=== PATIENT | female | born 1970 | race American Indian/Alaskan Native ===

== ENCOUNTER 2018-03-16 16:39 | Emergency (ER) | payer BC ==
[2018-03-16] MEDS ORDERED: CATAPRES PO ONE (17:39)
[2018-03-16 18:18] LABS: Basophils # (Auto) 0.1 K/mm3 (0.0-0.1); Basophils % (Auto) 1.2 % (0.0-1.8); Eosinophils # (Auto) 0.2 K/mm3 (0.0-0.4); Eosinophils % (Auto) 2.8 % (0.0-4.3); Hemoglobin 7.4 gm/dl (10.1-14.3); Lymphocytes # (Auto) 1.9 K/mm3 (1.2-5.4); Lymphocytes % (Auto) 23.1 % (13.4-35.0); Mean Corpuscular HGB Conc 30 % (30-34); Monocytes # (Auto) 0.5 K/mm3 (0.0-0.8); Monocytes % (Auto) 5.4 % (0.0-7.3); Platelet Count 419 K/mm3 (140-440); Red Blood Count 4.33 M/mm3 (3.65-5.03)
[2018-03-16 18:19] LABS: Mean Corpuscular Hemoglobin 17 pg (28-32); Mean Corpuscular Volume 58 fl (79-97)
[2018-03-16 18:20] LABS: Red Cell Distribution Width 20.1 % (13.2-15.2)
[2018-03-16 18:30] LABS: INR 0.85 (0.87-1.13)
[2018-03-16 18:32] LABS: Creatine Kinase MB 2.1 ng/mL (0.0-4.0)
[2018-03-16 18:33] LABS: BUN/Creatinine Ratio 9; Blood Urea Nitrogen 9 mg/dL (7-17); Calcium 9.2 mg/dL (8.4-10.2); Hemolysis Index 0
--- NOTE | 2018-03-16 19:03 | XRay Report ---
FINAL REPORT PROCEDURE: Chest. TECHNIQUE: PA and lateral views. HISTORY: Chest Pain . COMPARISON: No prior studies are available for comparison. FINDINGS: The heart size is mildly enlarged. The lungs are clear and well expanded. There are no pleural effusions. The soft tissues and regional skeleton are unremarkable. IMPRESSION: Mild cardiomegaly.
--- NOTE | 2018-03-16 19:15 | Emergency Department Report ---
ED Syncope HPI - General Chief Complaint: High BP Stated Complaint: PANIC ATTACK Time Seen by Provider: 03/16/18 18:48 Source: patient Exam Limitations: no limitations - History of Present Illness Initial Comments: 47 year old female with a past medical history ger-[id number] diabetes and hypertension complains of near syncopal episode during grief reaction in response to her brother's . Her younger brother presented earlier to the ER here and status post cardiac arrest. The hearing this news patient began crying, got really dizzy, went outside for air and then collapsed to the ground. Family member at the bedside states the patient did pass out completely but patient denies this. She did go down to the ground, did not strike her head since she was caught by a family member, but states she was alert during the whole process. She denies any preceding headache chest pain, shortness of breath, abdominal pain, nausea or diarrhea. She is presents with elevated blood pressure and has been noncompliant with her blood pressure medication 1 month. She has been compliant with her diabetes medication. She is admitted to [facility] 4 months ago for hypertension and medication compliance and states she had a negative stress test at that time. Her current medications are supposed to be lisinopril/hydrochlorothiazide 20/ 12.5 mg QD and metformin 500 mg twice a day - Related Data Allergies/Adverse Reactions: Allergies No Known Allergies Allergy (Unverified 03/16/18 17:31) Home Medications: Ambulatory Orders Docusate Sodium [Colace] 100 mg PO BID PRN #30 capsule 03/16/18 Ferrous Sulfate [Iron] 325 mg PO DAILY #30 tablet 03/16/18 Lisinopril/Hydrochlorothiazide [Zestoretic 20-12.5 mg] 1 tab PO QDAY #30 tablet 03/16/18 metFORMIN [Glucophage] 500 mg PO BID 03/16/18 ED Review of Systems ROS: Stated complaint: PANIC ATTACK Other details as noted in HPI Comment: All other systems reviewed and negative ED Past Medical Hx - Past Medical History Hx Diabetes: Yes Additional medical history: iron deficiency anemia - Social History Smoking Status: Never Smoker Substance Use Type: None - Medications Home Medications: Home Medications Medication Instructions Recorded Confirmed Last Taken Type Docusate Sodium [Colace] 100 mg PO BID PRN #30 capsule 03/16/18 Unknown Rx Ferrous Sulfate [Iron] 325 mg PO DAILY #30 tablet 03/16/18 Unknown Rx Lisinopril/Hydrochlorothiazide 1 tab PO QDAY #30 tablet 03/16/18 Unknown Rx [Zestoretic 20-12.5 mg] metFORMIN [Glucophage] 500 mg PO BID 03/16/18 03/16/18 Unknown History ED Physical Exam - General Limitations: No Limitations - Other Other exam information: General: No limitations, patient is alert in no acute distress Head exam: Atraumatic, normocephalic Eyes exam: Normal appearance, pupils equal reactive to light, extraocular movements intact ENT: Moist mucous membrane Neck exam: Normal inspection, full range of motion, no meningismus nontender Respiratory exam: Clear to auscultation bilateral, no wheezes, rales, crackles Cardiovascular: Normal rate and rhythm, normal heart sounds Abdomen: Soft, nondistended, and nontender, with normal bowel sounds, no rebound, or guarding Extremity: Full range of motion normal inspection no deformity Back: Normal Inspection, full range of motion, no tenderness Neurologic: Alert, oriented x3, cranial nerves intact, no motor or sensory deficit Psychiatric: normal affect, normal mood Skin: Warm, dry, intact ED Course Vital Signs 03/16/18 03/16/18 03/16/18 17:16 18:09 18:47 Temperature 98 F Pulse Rate 115 H 110 H Respiratory 16 Rate Blood Pressure 215/103 231/128 Blood Pressure 206/103 [Left] O2 Sat by Pulse 100 Oximetry 03/16/18 03/16/18 19:26 20:38 Temperature Pulse Rate 98 H 75 Respiratory 16 16 Rate Blood Pressure Blood Pressure 172/94 163/95 [Left] O2 Sat by Pulse Oximetry ED Medical Decision Making - Lab Data Result diagrams: 03/16/18 17:57 03/16/18 17:57 Lab Results 03/16/18 03/16/18 03/16/18 Range/Units 17:35 17:57 17:57 WBC 8.4 (4.5-11.0) K/mm3 RBC 4.33 (3.65-5.03) M/mm3 Hgb 7.4 L (10.1-14.3) gm/dl Hct 25.0 L (30.3-42.9) % MCV 58 L (79-97) fl MCH 17 L (28-32) pg MCHC 30 (30-34) % RDW 20.1 H (13.2-15.2) % Plt Count 419 (140-440) K/mm3 Lymph % (Auto) 23.1 (13.4-35.0) % [place] % (Auto) 5.4 (0.0-7.3) % Eos % (Auto) 2.8 (0.0-4.3) % Baso % (Auto) 1.2 (0.0-1.8) % Lymph # 1.9 (1.2-5.4) K/mm3 [place] # 0.5 (0.0-0.8) K/mm3 Eos # 0.2 (0.0-0.4) K/mm3 Baso # 0.1 (0.0-0.1) K/mm3 Seg Neutrophils % 67.5 (40.0-70.0) % Seg Neutrophils # 5.6 (1.8-7.7) K/mm3 PT (12.2-14.9) Sec. INR (0.87-1.13) Sodium 143 (137-145) mmol/L Potassium 3.5 L (3.6-5.0) mmol/L Chloride 104.2 (98-107) mmol/L Carbon Dioxide 24 (22-30) mmol/L Anion Gap 18 mmol/L BUN 9 (7-17) mg/dL Creatinine 1.0 (0.7-1.2) mg/dL Estimated GFR > 60 ml/min BUN/Creatinine Ratio 9 % Glucose 131 H (65-100) mg/dL POC Glucose 164 H (70-105) Calcium 9.2 (8.4-10.2) mg/dL Iron (37-170) ug/dL TIBC (250-450) mcg/dL % Saturation % Transferrin (192-382) mg/dl Total Creatine Kinase 184 H (30-135) units/L CK-MB (CK-2) 2.1 (0.0-4.0) ng/mL CK-MB (CK-2) Rel Index 1.1 (0-4) Troponin T < 0.010 (0.00-0.029) ng/mL HCG, Qual (Negative) 03/16/18 03/16/18 03/16/18 Range/Units 17:57 17:57 19:02 WBC (4.5-11.0) K/mm3 RBC (3.65-5.03) M/mm3 Hgb (10.1-14.3) gm/dl Hct (30.3-42.9) % MCV (79-97) fl MCH (28-32) pg MCHC (30-34) % RDW (13.2-15.2) % Plt Count (140-440) K/mm3 Lymph % (Auto) (13.4-35.0) % [place] % (Auto) (0.0-7.3) % Eos % (Auto) (0.0-4.3) % Baso % (Auto) (0.0-1.8) % Lymph # (1.2-5.4) K/mm3 [place] # (0.0-0.8) K/mm3 Eos # (0.0-0.4) K/mm3 Baso # (0.0-0.1) K/mm3 Seg Neutrophils % (40.0-70.0) % Seg Neutrophils # (1.8-7.7) K/mm3 PT 12.1 L (12.2-14.9) Sec. INR 0.85 L (0.87-1.13) Sodium (137-145) mmol/L Potassium (3.6-5.0) mmol/L Chloride (98-107) mmol/L Carbon Dioxide (22-30) mmol/L Anion Gap mmol/L BUN (7-17) mg/dL Creatinine (0.7-1.2) mg/dL Estimated GFR ml/min BUN/Creatinine Ratio % Glucose (65-100) mg/dL POC Glucose (70-105) Calcium (8.4-10.2) mg/dL Iron 16 L (37-170) ug/dL TIBC 481 H (250-450) mcg/dL % Saturation 3.33 % Transferrin 399 H (192-382) mg/dl Total Creatine Kinase (30-135) units/L CK-MB (CK-2) (0.0-4.0) ng/mL CK-MB (CK-2) Rel Index (0-4) Troponin T (0.00-0.029) ng/mL HCG, Qual Negative (Negative) - EKG Data -: EKG Interpreted by Nd EKG shows normal: sinus rhythm, axis (qrs 30), QRS complexes (qrsd 85), ST-T waves (no stemi/t inv) Rate: tachycardia (109) - Radiology Data Radiology results: report reviewed FINAL REPORT PROCEDURE: Chest. TECHNIQUE: PA and lateral views. HISTORY: Chest Pain . COMPARISON: No prior studies are available for comparison. FINDINGS: The heart size is mildly enlarged. The lungs are clear and well expanded. There are no pleural effusions. The soft tissues and regional skeleton are unremarkable. IMPRESSION: Mild cardiomegaly. - Medical Decision Making near syncope likely due to grief reaction no pain or other sx associated with episode htn noncompliance no signs of htn emergency improved after clonidine pt has 2 neg cardiac enzymes and reports a neg stress test this year med refill will be provided f/u encouraged anemia iron deficiency and noncompliant with iron pills iron pills will be prescribed hypokalemia mild po kcl provided pt remained asx in ed and will be d/pancho pt has f/u scheduled in 3 days with pmd Critical Care Time: No Critical care attestation.: If time is entered above; I have spent that time in minutes in the direct care of this critically ill patient, excluding procedure time. ED Disposition Clinical Impression: Grief reaction, Near syncope, Uncontrolled hypertension, Nonadherence to medication, Iron deficiency anemia, Diabetes Disposition: DC-01 TO HOME OR SELFCARE Is pt being admited?: No Does the pt Need Aspirin: No Condition: Stable Instructions: Grief and Loss (ED), Diabetes Mellitus Type 2 in Adults (ED), Iron Deficiency Anemia (ED), Hypertension (ED), Near Syncope (ED) Additional Instructions: Take the medication as prescribed. Follow up with your doctor. Return if symptoms worsen as indicated by your discharge instructions Prescriptions: Docusate Sodium [Colace] 100 mg PO BID PRN #30 capsule PRN Reason: Constipation Ferrous Sulfate [Iron] 325 mg PO DAILY #30 tablet Lisinopril/Hydrochlorothiazide [Zestoretic 20-12.5 mg] 1 tab PO QDAY #30 tablet Referrals: PRIMARY CARE, [Primary Care Provider] - 3-5 Days Time of Disposition: 21:19
[2018-03-16 19:19] LABS: % Iron Saturation 3.33 %
[2018-03-16 20:39] VITALS: BP 163/95
[2018-03-16] MEDS ORDERED: K-DUR PO ONE (20:47)
== END 2018-03-16 21:52 | disposition home or self-care (01) ==
LOC: ED 16:39
DX: I10 Essential (primary) hypertension (principal); D50.9 Iron deficiency anemia, unspecified; E11.9 Type 2 diabetes mellitus without complications; Z79.4 Long term (current) use of insulin
CPT/HCPCS: 36415; 71046; 80048; 82550; 82553; 82962; 83550; 84484; 84703; 85025; 85610; 93005; 93010